=== PATIENT | female | born 1995 | race African-American/Black ===

== ENCOUNTER 2018-03-10 13:03 | Emergency (ER) | payer BC ==
[2018-03-10 13:10] VITALS: BP 109/68; PULSE 70; TEMP 98.2; BMI 30.2
--- NOTE | 2018-03-10 13:41 | PDOC ---
History of Present Illness - General Chief Complaint: Sore Throat Stated Complaint: SORE THROAT Time Seen by Provider: 03/10/18 13:24 - History of Present Illness Initial Comments: 03/10/18 13:39 22-year-old female with past medical history significant for depression and she takes Prozac presents for evaluation of sore throat and hoarseness 3 days has no other associated symptoms Past History - Past Medical History Allergies/Adverse Reactions: Allergies Allergy/AdvReac Type Severity Reaction Status Date / Time No Known Allergies Allergy Verified 03/10/18 13:06 Home Medications: Ambulatory Orders Fluoxetine HCl [Prozac -] 20 mg PO DAILY 03/10/18 COPD: No Other medical history: saevere obstr sleep apnea - Suicide/Smoking/Psychosocial Hx Smoking History: Never smoked Review of Systems - Review of Systems Constitutional: Yes: See HPI. No: Chills, Diaphoresis, Fever, Malaise, Night Sweats HEENTM: Yes: Throat Pain All Other Systems: Reviewed and Negative *Physical Exam - Vital Signs Last Vital Signs Temp Pulse Resp BP Pulse Ox 98.2 F 70 18 109/68 100 03/10/18 13:08 03/10/18 13:08 03/10/18 13:08 03/10/18 13:08 03/10/18 13:08 - Physical Exam Comments: HEAD: NC/AT EYES: Conjuntiva clear Ears: Canals and TM's normal NOSE: No d/c THROAT: Moist mucous membrances, oral pharanx clear, uvula midline NECK: Supple without adenopathy CARDIAC: S1 S2 LUNGS: CTA Full and Equal breath sounds ABDOMEN: Soft NT ND MS: Full ROM in all joints without edema NEUROLOGIC: No gross sensory or motor deficits, NVID SKIN: Normal color and temperature no lesions or rashes 03/10/18 13:40 *DC/Admit/Observation/Transfer Diagnosis at time of Disposition: Viral pharyngitis - Discharge Dispostion Disposition: HOME Condition at time of disposition: Stable Decision to Admit order: No - Referrals Referrals: Ahsan Soler [Non Staff, Medical] - - Patient Instructions Printed Discharge Instructions: Sore Throat, Viral Pharyngitis Additional Instructions: Return to the emergency room should symptoms worsen or go unresolved. Please take Tylenol and Motrin as you have been doing and as directed for treatment of your sore throat. Follow-up with your primary care physician one to 2 days for further evaluation and treatment options. - Post Discharge Activity
== END 2018-03-10 14:01 | disposition home or self-care (01) ==
LOC: JERFT 13:03
DX: J02.8 Acute pharyngitis due to other specified organisms (principal); B97.89 Other viral agents as the cause of diseases classified elsewhere; F32.9 Major depressive disorder, single episode, unspecified
CPT/HCPCS: 99281-25

== ENCOUNTER 2018-03-16 21:40 | Emergency (ER) | payer BC ==
[2018-03-16 21:46] VITALS: BP 120/70; PULSE 103; TEMP 101.2; BMI 30.2
--- NOTE | 2018-03-16 21:48 | PDOC ---
Rapid Medical Evaluation Chief Complaint: Sore Throat Time Seen by Provider: 03/16/18 21:47 Medical Evaluation: Allergies Allergy/AdvReac Type Severity Reaction Status Date / Time No Known Allergies Allergy Verified 03/16/18 21:46 Vital Signs Temp Pulse Resp BP Pulse Ox 101.2 F H 103 H 16 120/70 100 03/16/18 21:43 03/16/18 21:43 03/16/18 21:43 03/16/18 21:43 03/16/18 21:43 03/16/18 21:47 I have performed a brief in-person evaluation of this patient. The patient presents with a chief complaint of: fever, sore throat, body aches and lose of voice for a week Pertinent physical exam findings: fever of 101F I have ordered the following: rapid strep. flu test The patient will proceed to the ED for further evaluation. Discharge Disposition - Diagnosis Sore throat - Referrals - Patient Instructions - Post Discharge Activity
[2018-03-16] MEDS ORDERED: ACETAMINOPHEN 500 MG TABLET (FP) PO ONE (22:49)
[2018-03-16] MEDS ORDERED: ACETAMINOPHEN 500 MG TABLET (FP) ONE (22:51)
--- NOTE | 2018-03-16 22:54 | PDOC ---
History of Present Illness - General Chief Complaint: Sore Throat Stated Complaint: SORE THROAT Time Seen by Provider: 03/16/18 21:47 - History of Present Illness Initial Comments: 03/16/18 22:52 22-year-old female with a past medical history significant for depression, she takes Prozac presents for evaluation of fever and sore throat times one day. Past History - Past Medical History Allergies/Adverse Reactions: Allergies Allergy/AdvReac Type Severity Reaction Status Date / Time No Known Allergies Allergy Verified 03/16/18 21:46 Home Medications: Ambulatory Orders Fluoxetine HCl [Prozac -] 40 mg PO DAILY 03/10/18 Azithromycin [Zithromax -] 250 mg PO UTDICT #6 tab 03/16/18 COPD: No - Suicide/Smoking/Psychosocial Hx Smoking History: Never smoked Have you smoked in the past 12 months: No Information on smoking cessation initiated: No Hx Alcohol Use: No Drug/Substance Use Hx: No Review of Systems - Review of Systems Constitutional: Yes: Fever HEENTM: Yes: Throat Pain All Other Systems: Reviewed and Negative *Physical Exam - Vital Signs Last Vital Signs Temp Pulse Resp BP Pulse Ox 101.2 F H 103 H 16 120/70 100 03/16/18 21:43 03/16/18 21:43 03/16/18 21:43 03/16/18 21:43 03/16/18 21:43 - Physical Exam Comments: 03/16/18 22:53 HEAD: NC/AT EYES: Conjuntiva clear Ears: Canals and TM's normal NOSE: No d/c THROAT: Moist mucous membrances, oral pharanx erythemic with exudate, uvula midline NECK: Supple without adenopathy CARDIAC: S1 S2 LUNGS: CTA Full and Equal breath sounds ABDOMEN: Soft NT ND MS: Full ROM in all joints without edema NEUROLOGIC: No gross sensory or motor deficits, NVID SKIN: Normal color and temperature no lesions or rashes ED Treatment Course - ADDITIONAL ORDERS Additional order review: 03/16/18 21:45 Group A Strep Rapid Antigen - Preliminary Throat Medical Decision Making - Medical Decision Making 03/16/18 22:54 Patient and is requesting another medicine besides amoxicillin for strep throat I have prescribed her Zithromax she states amoxicillin makes her nauseous. *DC/Admit/Observation/Transfer Diagnosis at time of Disposition: Sore throat, Strep pharyngitis - Discharge Dispostion Disposition: HOME Condition at time of disposition: Stable Decision to Admit order: No - Prescriptions Prescriptions: Azithromycin [Zithromax -] 250 mg PO UTDICT #6 tab - Referrals Referrals: ON STAFF,NOT [Primary Care Provider] - - Patient Instructions Printed Discharge Instructions: Strep Throat, DI for Strep Throat Additional Instructions: Follow-up with her primary care physician once 2 days for further evaluation and treatment options. Please take the antibiotics and finish the entire course as directed. He may take Tylenol and Motrin for pain and fever as directed. Return to the emergency room should symptoms worsen or go unresolved. - Post Discharge Activity
== END 2018-03-16 22:58 | disposition home or self-care (01) ==
LOC: JER 21:40 → JERFT 21:40
DX: J02.0 Streptococcal pharyngitis (principal); B95.0 Streptococcus, group A, as the cause of diseases classified elsewhere; F32.9 Major depressive disorder, single episode, unspecified
CPT/HCPCS: 87070; 87430; 87804; 99281-25